=== PATIENT | male | born 1980 ===

== ENCOUNTER 2020-08-16 09:52 | Outpatient (REF) | payer OTHER, SELFPAY ==
[2020-08-16 10:17] LABS: COVID-19 Test Negative (Negative)
== END 2020-08-16 09:53 | disposition home or self-care (01) ==
LOC: HO.LAB 09:52
PROVIDERS: PCP Internal Medicine; Visit Provider Internal Medicine
DX: Z20.828 Contact with and (suspected) exposure to other viral communicable diseases (principal)
CPT/HCPCS: 87635

== ENCOUNTER 2024-11-28 13:42 | Outpatient (AMB) | payer SELFPAY ==
--- NOTE | 2024-11-28 13:43 | MHC.PC.OV ---
Vital Signs 11/28/24 13:46 Height 5 ft 7 in Weight 180 lb BMI 28.2 BP 118/80 Blood Pressure Location Lt brachial Position Sitting Intake Visit Reasons: establish care/ requesting pe Case Reviewer Required: No Accompanied by: Self / Same As Patient Allergies Penicillins [PENICILLINS] Allergy (Severe, Verified 11/28/24 13:57) RASH penicillin V Allergy (Unknown, Verified 11/28/24 13:57) hives penicillin Allergy (Unknown, Uncoded 11/28/24 13:57) hives Medication List - Last Reconciled 11/28/24 by Mitzi Castelan MD No Known Home Meds Tobacco use date assessed: 11/28/24 Dental Screening Dental Screen Date: 11/28/24 Did you have a dental visit in the last 12 months?: Yes Did you have a dental problem in the last 6 months where you did not have access to dental care?: No Was dental information given to patient?: Patient has dentist HPI HPI Comments History of Present Illness Details The patient is a 44-year-old male presenting with complaints of allergic rhinitis and costovertebral angle tenderness. He reports intermittent episodes of rhinitis, exacerbated by pollen exposure, which has been managed with Claritin with mild relief. The patient has a history of gastroesophageal reflux disease, with frequent episodes of acidity. He reports that an endoscopy and colonoscopy were conducted approximately ten years ago, but there were no significant findings noted during those procedures. He experiences increased pain in the right costovertebral region, with the pain at times being more severe, without being able to identify a specific cause. The patient denies any recent surgical interventions, new medications, or dietary changes that might relate to these symptoms. He complains of occasional chest pain. He does have obstructive sleep apnea and is on CPAP machine and will be referred to sleep Medicine for this matter. [facility] Surgical History (Updated 11/28/24 @ 14:03 by Mitzi Castelan MD) Hx of colonoscopy History of circumcision Family History Mother No problems noted. Father No problems noted. Social History (Updated 11/28/24 @ 14:02 by Mitzi Castelan MD) Housing: House Alcohol intake: current Alcohol intake frequency: a few times a week Alcohol type: beer Patient Tobacco Use Status: Never used Tobacco e-Cigarette/Vaping Use: Never Used Second Hand Smoke Exposure: No service: No Current occupational status: employed Current occupational exposures/hazards: No Cognitive needs: No Hearing needs: No Vision needs: No Questionnaire PHQ-9 Over the last 2 weeks, how often have you been bothered by any of the following problems? 1. Little interest or pleasure in doing things: not at all 2. Feeling down, depressed, or hopeless: not at all 3. Trouble falling or staying asleep, or sleeping too much: not at all 4. Feeling tired or having little energy: not at all 5. Poor appetite or overeating: not at all 6. Feeling bad about yourself - or that you are a failure or have let yourself or your family down: not at all 7. Trouble concentrating on things, such as reading the newspaper or watching television: not at all 8. Moving or speaking so slowly that other people could have noticed. Or the opposite - being so fidgety or restless that you have been moving around a lot more than usual: not at all 9. Thoughts that you would be better off or of hurting yourself in some way: not at all Total score: 0 Depression Screening Interpretation: Negative Depression Screening Done: Yes 05437 - PHQ-9 Billing: Yes Source: Developed by Drs. Simon Blood, Arlyn Schuster, Torey Power and colleagues, with an educational gerson from [employer]. Thrive Questionnaire Date Thrive assessed: 11/28/24 I am a: Patient What is your living situation today?: I have a steady place to live Within the past 12 months, did the food you bought not last and you didn't have the money to get more?: Often true Within the past 12 months, did you worry whether your food would run out before you got money to buy more?: Never true Do you have trouble paying for medicines?: No Do you have trouble getting transportation to medical appointments?: No Do you have trouble paying your heating and electricity bill?: No Do you have trouble taking care of your child, family member or friend?: No Do you have trouble with day-to-day activities such as bathing, preparing meals, shopping, managing finances, etc.?: No Are you currently unemployed and looking for a job?: No Are you interested in more education?: No Please select the resources that you would like help with: None Currently or been in a relationship where the following occur: No concerns reported THRIVE Score: 1 AUDIT C Alcohol Use Questionnaire (AUDIT-C) 1. How often do you have a drink containing alcohol?: 2-4 times a month 2. How many drinks containing alcohol do you have on a typical day when you are drinking?: 3 or 4 3. How often do you have six or more drinks on one occasion?: Never Total Score: 3 Score Reviewed/Action Taken: Yes JERRELL-7 AMB Questionnaire JERRELL-7 Date JERRELL - 7 assessed: 11/28/24 Feeling nervous, anxious, or on edge: 0 = Not at all Not being able to stop or control worryin = Not at all Worrying too much about different things: 0 = Not at all Trouble relaxin = Not at all Being so restless that it is hard to sit still: 0 = Not at all Becoming easily annoyed or irritable: 0 = Not at all Feeling afraid as if something awful might happen: 0 = Not at all Total JERRELL-7 score (0-4 normal; 5-9 mild; 10-14 moderate; 15-21 severe): 0 Source: Developed by Drs. Simon Blood, Arlyn Schuster, Torey Power and colleagues, with an educational gerson from [employer]. JERRELL-7 Assessment Billing JERRELL-7 Assessment Tool: JERRELL-7 Assessment 20514 Review of Systems Const All systems reviewed & are unremarkable except as noted in HPI and below Card Denies chest pain at rest, Denies chest pain with activity, Denies edema, Denies irregular heart rhythm, Denies claudication, Denies dyspnea, Denies dyspnea on exertion, Denies orthopnea, Denies paroxysmal nocturnal dyspnea and Denies slow heart rate Resp Denies cough, Denies dyspnea and Denies dyspnea on exertion GI Denies abdominal pain, Denies change in bowel habits, Denies excessive flatus, Denies nausea and Denies vomiting Physical exam (Primary Care) Vital Signs: Last Vital Signs BP 118/80 11/28/24 13:46 BMI result Body Mass Index 28.2 Tobacco/Smoking Status: Tobacco use Status Tobacco use date assessed 11/28/24 11/28/24 13:49 Patient Tobacco Use Status Never used Tobacco 11/28/24 14:02 e-Cigarette/Vaping Use Never Used 11/28/24 14:02 PHQ-9: PHQ-9 Score PHQ-9: Total score 0 11/28/24 15:25 Depression Screening Interpretation: Negative Thrive Assessment: Date of Thrive Assessment Date Thrive assessed 11/28/24 11/28/24 13:49 Currently or been in a relationship where the following occur: No concerns reported Resp Effort & Inspection: normal respiratory effort Auscultation: clear to auscultation bilaterally Cardio Jugular venous distension: no JVD Rate: regular rate Rhythm: regular rhythm Heart sounds: S1 normal heart sound present and S2 normal heart sound present Extrem General: Yes full ROM Office Procedures Flu Questionnaire Does the patient have a severe egg allergy?: No Immunizations Fluarix Triv [id number] (PF) 45 mcg (15 mcg x 3)/0.5 mL IM syringe Performing Provider: Mitzi Castelan MD Performing Location: [facility] Documented (not given) by: OMERO Lim on 11/28/24 13:50 Reason Not Given: Patient Refused Boostrix Tdap 2.5 Lf unit-8 mcg-5 Lf/0.5 mL intramuscular syringe Performing Provider: Mitzi Castelan MD Performing Location: [facility] Administered by: OMERO Lim on 11/28/24 14:18 Dose Route Admin Location Dispensed Lot Number Expiration Date [place] Pathology Technologist 0.5 mL IM Left Deltoid 0.5 mL [id number] 01/18/27 [id number] [employer] VIS Given Date VIS Provided VIS Publication Date 11/28/24 Single Vaccine 21 Eligibility Eligibility Date Funding Source Not [facility] Eligible 11/28/24 Private Coding Level of Care Code Est Pt Level 4 (70430) Complex EM visit Add On G2211 Diagnoses DONTAE on CPAP G47.33 Costovertebral angle tenderness M54.9 Seasonal allergic rhinitis J30.2 Chest pain R07.9 Additional Codes JERRELL-7 Assessment Billing - JERRELL-7 Assessment Tool: JERRELL-7 Assessment 89355 ([id number]) PHQ-9 - 43172 - PHQ-9 Billing: Yes ([id number]) Time Spent (min) 21 Assessment & Plan Assessment & Plan (1) DONTAE on CPAP: Code(s): G47.33 - Obstructive sleep apnea (adult) (pediatric) Category: Medical (2) Costovertebral angle tenderness: Code(s): M54.9 - Dorsalgia, unspecified Category: Medical (3) Seasonal allergic rhinitis: Code(s): J30.2 - Other seasonal allergic rhinitis Category: Medical (4) Chest pain: Code(s): R07.9 - Chest pain, unspecified Category: Medical Plan - Continue management with Claritin for allergic rhinitis, assessing efficacy. - Monitor chronic abdominal pain and consider further gastrointestinal evaluation if symptoms persist or worsen. - Ongoing management of GERD with lifestyle modifications and OTC antacids as needed. - Discuss potential for re-evaluation with endoscopy or colonoscopy if symptoms suggest changes in the condition. Patient was informed and verbally consented to the use of an ambient scribe for clinic note documentation during this visit. During the conversation, I reviewed the management regimen for the patient's allergic rhinitis, emphasizing the importance of using Claritin. I explained the role of environmental control to minimize pollen exposure as a preventive strategy. The patient voiced understanding and agreed to adhere to the discussed management plan. There was no mention of specific numerical estimates of risk or procedure risks/benefits during the discussion. Orders: Orders Influenza [id number] Immunization Today Z23 - Encounter for immunization ECG 12 lead EKG Today R07.9 - Chest pain, unspecified Complete Blood Count Auto Diff Today R07.9 - Chest pain, unspecified TDaP Immunization Today Z23 - Encounter for immunization XR KUB Today M54.9 - Dorsalgia, unspecified Lipid Panel Today R07.9 - Chest pain, unspecified Comprehensive [place]. Panel Fast Today R07.9 - Chest pain, unspecified Thyroid Stimulating Hormone Today R07.9 - Chest pain, unspecified Referrals Allergy & Immunology Referral J30.2 - Other seasonal allergic rhinitis Neurology Referral G47.33 - Obstructive sleep apnea (adult) (pediatric) Medications: New hydrocortisone 2.5% (Proctosol HC) 1 appl NC BID-QID PRN 30 grams 1RF hemorrhoids 30 days loratadine (Allergy Relief (loratadine)) 10 mg PO DAILY 90 tabs 0RF 90 days J30.2 - Other seasonal allergic rhinitis Patient Instructions: - Continue taking Claritin as needed, especially during high pollen seasons. - Follow up if symptoms persist or new symptoms develop.
[2024-11-28 13:46] VITALS: BP 118/80; BMI 28.2
== END 2024-11-28 14:19 | disposition home or self-care (01) ==
PROVIDERS: PCP Internal Medicine; Visit Provider Internal Medicine
DX: G47.33 Obstructive sleep apnea (adult) (pediatric) (principal); M54.9 Dorsalgia, unspecified; J30.2 Other seasonal allergic rhinitis; R07.9 Chest pain, unspecified; Z23 Encounter for immunization

== ENCOUNTER → 2024-11-28 13:42 | Outpatient (BNVA) | payer SELFPAY | PROVIDERS: PCP Internal Medicine; Visit Provider Internal Medicine | DX: J30.2 Other seasonal allergic rhinitis (principal); R07.9 Chest pain, unspecified; G47.33 Obstructive sleep apnea (adult) (pediatric); M54.9 Dorsalgia, unspecified; Z23 Encounter for immunization | CPT/HCPCS: 90471; 90715; 96127; 99212 ==

== ENCOUNTER → 2024-12-05 10:05 | Outpatient (BNV) | payer OTHER, SELFPAY | PROVIDERS: PCP Internal Medicine; Visit Provider Internal Medicine Cardiovascular Disease | DX: R07.9 Chest pain, unspecified (principal) | CPT/HCPCS: 93010 ==

== ENCOUNTER → 2024-12-05 10:29 | Outpatient (BNV) | payer OTHER, SELFPAY | PROVIDERS: PCP Internal Medicine; Visit Provider Radiology Diagnostic Radiology | DX: K56.41 Fecal impaction (principal) | CPT/HCPCS: 74018 ==

== ENCOUNTER 2024-12-13 08:59 | Outpatient (REF) | payer OTHER, SELFPAY ==
[2024-12-13 19:11] LABS: Vitamin B12 304 pg/mL (200-900)
[2024-12-13 19:27] LABS: Iron 73 mcg/dL (45-160); Percent Iron Saturation 25 % (15-50); Total Iron Binding Capacity 292 mcg/dL (228-428); Unsaturated Iron Binding 219 ug/dL
[2024-12-13 19:35] LABS: Ferritin 267 ng/mL (20-250); Vitamin D 25-OH Total 6.4 ng/mL (>30)
[2024-12-17 08:29] LABS: Methylmalonic Acid 127 nmol/L (55-335)
== END 2024-12-13 09:00 | disposition home or self-care (01) ==
LOC: HO.HKASLDS 08:59
PROVIDERS: PCP Internal Medicine; Visit Provider Physician Assistant Medical
DX: G47.9 Sleep disorder, unspecified (principal); R53.83 Other fatigue; R06.83 Snoring; R06.89 Other abnormalities of breathing
CPT/HCPCS: 36415; 82306; 82607; 82728; 82746; 83540; 83921; 99202

== ENCOUNTER 2024-12-13 08:59 | Outpatient (AMB) | payer OTHER, SELFPAY ==
[2024-12-13 09:03] VITALS: BP 112/90; PULSE 82; O2SAT 98; BMI 28.8
--- NOTE | 2024-12-13 09:03 | MHC.OFFVIS ---
Vital Signs 12/13/24 09:03 Height 5 ft 7 in Weight 184 lb BMI 28.8 BP 112/90 H Blood Pressure Location Lt brachial Position Sitting Pulse 82 Pulse Source Pulse Oximeter Pulse Oximetry (%) 98 Oxygen Delivery Method Room Air Intake Visit Reasons: 2/3LVM+Let INP-DONTAE Sports Physical Therapist Required: No Accompanied by: Spouse Allergies Penicillins [PENICILLINS] Allergy (Severe, Verified 12/13/24 09:13) RASH penicillin V Allergy (Unknown, Verified 12/13/24 09:13) hives penicillin Allergy (Unknown, Uncoded 11/28/24 13:57) hives Medication List - Last Reconciled 12/13/24 by Nicolle Bailon PA-C hydrocortisone 2.5% (Proctosol HC) 1 appl RI BID-QID PRN 30 days loratadine (Allergy Relief (loratadine)) 10 mg PO DAILY 90 days HPI Comments Details: 44 year old Hungarian speaking male is referred to us by his PCP for sleep evaluation. Bridger is interpreting for him. He goes to sleep at midnight and wakes up at 9am with 0 bathroom breaks at night. He has a very difficult time falling asleep. He works Wed to Thu- 6am - 6pm. His c/o him snoring loudly all night, he stops breathing and pauses then gasps for air. He wakes up with mild morning headaches 2-3 x a month and takes ibuprofen, they generally resolve within 30 min or less. He is a side sleeper, usually on his R. side. His BP is elevated today as he is anxious, will monitor at home. He denies rest less leg syndrome, but his legs go numb and tingle at night, denies burning, spasms, cramps or pain. He was diagnosed with DONTAE over 7 years ago, but is not being monitored. He is not a cigarette smoker, he does not consume edibles and or MJ. He drinks socially. COUNT INCLUDES THE [facility] Surgical History Hx of colonoscopy History of circumcision Family History Mother No problems noted. Father No problems noted. Social History (Reviewed 12/13/24 @ 09:12 by DEV Lovell Housing: House Alcohol intake: current Alcohol intake frequency: a few times a week Alcohol type: beer Patient Tobacco Use Status: Never used Tobacco e-Cigarette/Vaping Use: Never Used Second Hand Smoke Exposure: No service: No Current occupational status: employed Current occupational exposures/hazards: No Cognitive needs: No Hearing needs: No Vision needs: No Physical Exam Vital Signs: Last Vital Signs Pulse 82 12/13/24 09:03 BP 112/90 H 12/13/24 09:03 Pulse Ox 98 12/13/24 09:03 Oxygen Delivery Method Room Air 12/13/24 09:03 BMI result Body Mass Index 28.8 Const General: cooperative, comfortable and no acute distress Orientation/consciousness: patient oriented x3 HEENT Face and sinus: Yes normal facial exam and Yes face symmetric Teeth and gingiva: other (Mallmpti score of 4) Eyes Pupils: Equal, round and reactive pupils present Neck Neck: Yes full ROM Resp Effort & Inspection: normal respiratory effort and able to speak in complete sentences Neuro General: patient oriented x3 Cranial nerves: Yes CN's II-XII intact bilaterally, Yes Facial sensation intact/muscles of mastication intact, Yes Equal, round and reactive pupils present, Yes Normal accommodation reflex present, Yes Bilaterally intact EOM present, Yes Nystagmus not present, Yes Normal facial strength present, Yes Midline tongue present, Yes Ability to bilaterally rotate head present and Yes Ability to bilaterally elevate shoulders present Gait exam (Neuro): Normal gait present Motor exam (neuro): 5/5 motor strength present throughout and Abnormal motor strength present Deep tendon reflexes (DTR's): Right triceps reflex intensity grade: 2+, Left triceps reflex intensity grade: 2+, Rt Biceps (C5, C6): 2+, Left biceps reflex intensity grade: 2+, Right brachioradialis reflex intensity grade: 2+, Left brachioradialis reflex intensity grade: 2+, Right patellar reflex intensity grade: 2+ and Left patellar reflex intensity grade: 2+ Psych Thought process: Normal thought process present Thought content: Normal thought content present Results Reviewed Results Reviewed: 11/2024 Xray KUB FINDINGS: Three supine views of the abdomen are submitted. The bowel gas pattern is unremarkable, without evidence of mechanical obstruction. There is a large amount of stool throughout the colon. No abnormal calcifications are identified. There are no abnormal soft tissue masses. The bones are intact. EKG 11/2024 Normal EKG Assessment & Plan Assessment & Plan (1) Fatigue due to sleep pattern disturbance: Code(s): R53.83 - Other fatigue; G47.9 - Sleep disorder, unspecified Category: Medical (2) Loud snoring: Code(s): R06.83 - Snoring Category: Medical (3) Gasping for breath: Code(s): R06.89 - Other abnormalities of breathing Category: Medical Plan Snoring Loudly will evaluate for DONTAE. Fatigue will r/o deficiencies with Labs CBC/ CMP /B12/ TSH/ Vit D/ Iron/ Folate/ MMA Homocysteine Headaches will f/u at next appt if not improved. Orders: Orders Homocysteine Today G47.9 - Sleep disorder, unspecified, R53.83 - Other fatigue Ferritin Today G47.9 - Sleep disorder, unspecified, R53.83 - Other fatigue RT home sleep study Today G47.9 - Sleep disorder, unspecified, R53.83 - Other fatigue Vitamin B12 and Folate Today G47.9 - Sleep disorder, unspecified, R53.83 - Other fatigue IRON PROFILE Today G47.9 - Sleep disorder, unspecified, R53.83 - Other fatigue Methylmalonic Acid Today G47.9 - Sleep disorder, unspecified, R53.83 - Other fatigue Vitamin D 25-OH Total Today G47.9 - Sleep disorder, unspecified, R53.83 - Other fatigue Patient Instructions: Sleep Hygiene: Set a regimented sleep and wake time. No devices in bed. No fluids 2 hours prior to bed. May read a book. Diffuse essential oils or play soft music or use humming of the fan to sleep. For snoring, taping the mouth, mouth guard or nose strips. Monitor Onset, Intensity, Frequency, severity of Headaches, may use the migraine flavio marissa. Exercise, hiking, biking swimming, walking daily may help with alleviating stress, and drink 60% of water in body weight. Coding Level of Care Code New Pt Level 4 (13058) Diagnoses Fatigue due to sleep pattern disturbance R53.83; G47.9 Loud snoring R06.83 Gasping for breath R06.89 Time Spent (min) 35 Comment Evaluation of Sleep Sleep Questionnaire Difficulty falling asleep: Yes Difficulty staying asleep?: No Number of arousals: 2-3 x Snoring: Yes Witnessed apneas: Yes Gasping arousals: Yes Nocturia: No GERD: No Vivid dreams: No Acting out dreams: No Abnormal behavior in sleep: No Abnormal movements in sleep: No Morning headaches: No Excessive daytime sleepiness: Yes Daytime naps: No Restless legs: Yes Hallucinations: No Sleep paralysis: No Drop attacks: No Sleep Study: Yes (over 7 years ago) CPAP: Yes
== END 2024-12-13 10:09 | disposition home or self-care (01) ==
PROVIDERS: PCP Internal Medicine; Visit Provider Physician Assistant Medical
DX: R53.83 Other fatigue (principal); G47.9 Sleep disorder, unspecified; R06.83 Snoring; R06.89 Other abnormalities of breathing
CPT/HCPCS: 99204

== ENCOUNTER 2025-04-03 13:41 | Outpatient (AMB) | payer OTHER, SELFPAY ==
--- NOTE | 2025-04-03 13:46 | A.OFFPC_ITS ---
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 Accompanied by: Self / Same As Patient Allergies Penicillins [PENICILLINS] Allergy (Severe, Verified 04/03/25 13:57) RASH penicillin V Allergy (Unknown, Verified 04/03/25 13:57) hives penicillin Allergy (Unknown, Uncoded 04/03/25 13:57) hives Medication List - Last Reconciled 04/03/25 by Mitzi Castelan MD cholecalciferol (vitamin D3) 50 mcg PO DAILY 90 days MDD 50 mcg hydrocortisone 2.5% (Proctosol HC) 1 appl MI BID-QID PRN 30 days loratadine (Allergy Relief (loratadine)) 10 mg PO DAILY 90 days Tobacco use date assessed: 11/28/24 Dental Screening Dental Screen Date: 11/28/24 HPI HPI Comments History of Present Illness Details The patient is a 45-year-old male presenting for his annual physical examination. He is managing a vitamin D deficiency with noted below-normal levels, requiring ongoing supplementation. His hemoglobin level is elevated, prompting the need for hematological evaluation. The patient experiences occasional rectal bleeding attributed to hemorrhoidal disease, without more concerning gastrointestinal symptoms. The patient's medication history includes an allergy to penicillin, resulting in hives. He previously had an H. pylori infection that has been treated, and he is managing GERD with prescribed omeprazole. Surgeries include circumcision, colonoscopy, and wisdom tooth extraction. He reports no current medications other than vitamin D, denies additional allergies except to penicillin, and his cholesterol appears well-controlled. In his social history, he reports occasional alcohol consumption but no tobacco use. Current clinical concerns include vitamin D deficiency, elevated he moglobin, and penicillin allergy. - Discussed need for tetanus vaccination , pending update this year. - Continued prescription for vitamin D s upplements due to deficiency. - Cholesterol: total 196 mg/dL, LDL 130 mg/dL, triglycerides 127 mg/dL; levels discussed, noted as within acceptable range. - Renal, hepatic, and thyroid functions assessed as normal. - Hemoglobin and ferritin levels elevate d; further hematology consult advised. [facility] Surgical History History of wisdom tooth extraction Hx of colonoscopy History of circumcision Family History Mother No problems noted. Father No problems noted. Social History Housing: House Alcohol intake: current Alcohol intake frequency: a few times a week Alcohol type: beer Patient Tobacco Use Status: Never used Tobacco e-Cigarette/Vaping Use: Never Used Second Hand Smoke Exposure: No service: No Current occupational status: employed Current occupational exposures/hazards: No Cognitive needs: No Hearing needs: No Vision needs: No Questionnaire PHQ-9 Over the last 2 weeks, how often have you been bothered by any of the following problems? 5. Poor appetite or overeating: not at all 6. Feeling bad about yourself - or that you are a failure or have let yourself or your family down: not at all 7. Trouble concentrating on things, such as reading the newspaper or watching television: not at all 8. Moving or speaking so slowly that other people could have noticed. Or the opposite - being so fidgety or restless that you have been moving around a lot more than usual: not at all 9. Thoughts that you would be better off or of hurting yourself in some way: not at all Source: Developed by Drs. Simon Blood, Arlyn Schuster, Torey Power and colleagues, with an educational gerson from [employer]. Thrive Questionnaire Date Thrive assessed: 11/28/24 Within the past 12 months, did you worry whether your food would run out before you got money to buy more?: I choose not to answer this question Do you have trouble paying for medicines?: I choose not to answer this question Do you have trouble getting transportation to medical appointments?: No Do you have trouble paying your heating and electricity bill?: I choose not to answer this question Do you have trouble taking care of your child, family member or friend?: No Do you have trouble with day-to-day activities such as bathing, preparing meals, shopping, managing finances, etc.?: No Are you currently unemployed and looking for a job?: No Are you interested in more education?: No Please select the resources that you would like help with: None Currently or been in a relationship where the following occur: No concerns reported THRIVE Score: 0 AUDIT C Alcohol Use Questionnaire (AUDIT-C) 1. How often do you have a drink containing alcohol?: 2-3 times a week 2. How many drinks containing alcohol do you have on a typical day when you are drinking?: 5 or 6 3. How often do you have six or more drinks on one occasion?: Weekly Total Score: 8 JERRELL-7 AMB Questionnaire JERRELL-7 Date JERRELL - 7 assessed: 04/03/25 Feeling nervous, anxious, or on edge: 0 = Not at all Not being able to stop or control worryin = Not at all Worrying too much about different things: 0 = Not at all Trouble relaxin = Not at all Being so restless that it is hard to sit still: 0 = Not at all Becoming easily annoyed or irritable: 0 = Not at all Feeling afraid as if something awful might happen: 0 = Not at all Total JERRELL-7 score (0-4 normal; 5-9 mild; 10-14 moderate; 15-21 severe): 0 Source: Developed by Drs. Simon Blood, Arlyn Schuster, Torey Power and colleagues, with an educational gerson from [employer]. JERRELL-7 Assessment Billing JERRELL-7 Assessment Tool: JERRELL-7 Assessment 28768 Review of Systems Const All systems reviewed & are unremarkable except as noted in HPI and below Card Denies chest pain at rest, Denies chest pain with activity, Denies edema, Denies irregular heart rhythm, Denies claudication, Denies dyspnea, Denies dyspnea on exertion, Denies orthopnea, Denies paroxysmal nocturnal dyspnea and Denies slow heart rate Resp Denies cough, Denies dyspnea and Denies dyspnea on exertion GI Denies abdominal pain, Denies change in bowel habits, Denies excessive flatus, Denies nausea and Denies vomiting Denies urinary hesitancy, Denies urinary incontinence and Denies urinary urgency Neuro Denies lack of coordination Physical exam (Primary Care) Vital Signs: Last Vital Signs BP 118/76 04/03/25 13:48 BMI result Body Mass Index 28.3 Tobacco/Smoking Status: Tobacco use Status Tobacco use date assessed 11/28/24 04/03/25 13:52 Patient Tobacco Use Status Never used Tobacco 04/03/25 13:52 e-Cigarette/Vaping Use Never Used 04/03/25 13:52 Thrive Assessment: Date of Thrive Assessment Date Thrive assessed 11/28/24 04/03/25 13:52 Currently or been in a relationship where the following occur: No concerns reported HENMT Head: Yes normal to inspection, Yes normocephalic and Yes atraumatic Ears: external ears normal Eyes General: appearance normal, both eyes and all related structures Eyelids: Yes eyelids normal Conjunctivae: conjunctivae normal Neck Neck: Yes normal visual inspection and Yes supple Resp Effort & Inspection: normal respiratory effort Auscultation: clear to auscultation bilaterally Cardio Jugular venous distension: no JVD Rate: regular rate Rhythm: regular rhythm Heart sounds: S1 normal heart sound present and S2 normal heart sound present GI Inspection: Yes normal to inspection Palpation (GI): Soft to palpation and nontender Auscultation: normal bowel sounds Skin General skin exam: no rashes or lesions noted Neuro General: no focal motor deficits Extrem General: Yes full ROM Psych Appearance: grossly normal Coding Level of Care Code Est Pt Level 3 (08715) Est Pt Prev Care 40-64y(09565) Diagnoses Physical exam Z00.00 Chronic GERD K21.9 Elevated hemoglobin D58.2 Erectile dysfunction N52.9 Additional Codes JERRELL-7 Assessment Billing - JERRELL-7 Assessment Tool: JERRELL-7 Assessment 56832 ([id number]) Time Spent (min) 35 Assessment & Plan Assessment & Plan (1) Physical exam: Code(s): Z00.00 - Encounter for general adult medical examination without abnormal findings Category: Medical (2) Chronic GERD: Code(s): K21.9 - Gastro-esophageal reflux disease without esophagitis Category: Medical (3) Elevated hemoglobin: Code(s): D58.2 - Other hemoglobinopathies Category: Medical (4) Erectile dysfunction: Code(s): N52.9 - Male erectile dysfunction, unspecified Category: Medical Plan I advised the patient to continue vitamin D supplementation due to deficiency, ensuring monitoring of appropriate levels. Omeprazole was prescribed for GERD management. Due to the elevated hemoglobin levels, a referral to hematology was made for further assessment. Rectal bleeding attributed to hemorrhoids will be screened using a Cologuard test distributed to his residence. The penicillin allergy remains documented for ongoing medical records. Cholesterol levels were reviewed and noted to be within limits, not requiring adjustment. Tetanus vaccination was discussed for this year, and directives were given to follow up with a neurologist if necessary. Overall, ongoing health management will focus on addressing deficiencies and maintaining stable clinical conditions. Patient was informed and verbally consented to the use of an ambient scribe for clinic note documentation during this visit. I discussed with the patient the importance of maintaining adequate vitamin D levels and the potential impacts of deficiency on bone health. The implications of elevated hemoglobin were explained, and he was referred to hematology for detailed evaluation. The risks and benefits of continuing omeprazole for GERD management were reviewed. Screening for colorectal cancer was suggested through a convenient home-based test given his report of hemorrhoidal bleeding. We emphasized being vigilant about the penicillin allergy and discussed cholesterol levels, which are currently within acceptable limits. The necessity of updating his tetanus vaccination was also covered. I advised the patient that should any changes or concerning symptoms arise, prompt consultation with medical care is advised. Orders: Orders Testosterone, Free/Total Today N52.9 - Male erectile dysfunction, unspecified Referrals Hematology & Oncology Referral D58.2 - Other hemoglobinopathies Medications: New omeprazole 20 mg PO DAILY 90 caps 1RF 90 days K21.9 - Gastro-esophageal reflux disease without esophagitis tadalafil administer approximately 30min before sexual activity; do not use more than 1 dose per 24hrs 10 mg PO DAILY PRN 3 tabs 0RF sexual activity 3 days N52.9 - Male erectile dysfunction, unspecified Refilled cholecalciferol (vitamin D3) Take one tablet daily by mouth. 50 mcg PO DAILY 90 tabs 3RF deficiency of Vitamin D 90 days MDD 50 mcg E55.9 - Vitamin D deficiency, unspecified Patient Instructions: - Continue taking vitamin D supplements as prescribed. - Take omeprazole as prescribed to manage GERD symptoms. - Complete the at-home Cologuard test and mail it back promptly. - Schedule follow-up with hematology for assessment of elevated hemoglobin. - Avoid penicillin and related drugs due to known allergy. - Keep up to date with tetanus vaccination. - Monitor health and report any new or worsening symptoms. - Limit alcohol consumption to current levels, and remain abstinent from smoking.
[2025-04-03 13:48] VITALS: BP 118/76; BMI 28.3
== END 2025-04-03 14:13 | disposition home or self-care (01) ==
LOC: HO.HMCH 13:42
PROVIDERS: PCP Internal Medicine; Visit Provider Internal Medicine
DX: Z00.00 Encounter for general adult medical examination without abnormal findings (principal); K21.9 Gastro-esophageal reflux disease without esophagitis; D58.2 Other hemoglobinopathies; N52.9 Male erectile dysfunction, unspecified

== ENCOUNTER → 2025-04-03 13:41 | Outpatient (BNVA) | payer OTHER, SELFPAY | PROVIDERS: PCP Internal Medicine; Visit Provider Internal Medicine | DX: Z00.00 Encounter for general adult medical examination without abnormal findings (principal); E55.9 Vitamin D deficiency, unspecified; K21.9 Gastro-esophageal reflux disease without esophagitis; D58.2 Other hemoglobinopathies; N52.9 Male erectile dysfunction, unspecified | CPT/HCPCS: 96127 ==

== ENCOUNTER → 2025-05-09 11:23 | Outpatient (BNV) | payer OTHER, SELFPAY | PROVIDERS: PCP Internal Medicine; Referring Provider Internal Medicine; Visit Provider Internal Medicine Medical Oncology | DX: D58.2 Other hemoglobinopathies (principal); R79.89 Other specified abnormal findings of blood chemistry | CPT/HCPCS: 99204 ==